=== PATIENT | male | born 1985 | race Caucasian/White ===

== ENCOUNTER → 2018-03-06 11:15 | Outpatient (CLI) | payer BC, SELFPAY ==
[2018-03-06 12:29] LABS: Anion Gap 7 (5-15); BUN 12 mg/dL (7-18); BUN/Creat Ratio 11.9 RATIO (10-20); Calcium,Total 8.9 mg/dL (8.5-10.1); Chloride 105 mmol/L (98-107); Creatinine, Serum 1.01 mg/dL (0.70-1.30); EST Glomerular Filtration Rate 91 mL/min (>60); Est Glom Filt Rate - Afr Amer 111 mL/min (>60); Glucose 84 mg/dL (74-106); Potassium 3.5 mmol/L (3.5-5.1); Sodium Level 142 mmol/L (136-145)
== END ==
PROVIDERS: Physician Assistant Medical; Family Provider Family Medicine; PCP Family Medicine; Visit Provider Internal Medicine Cardiovascular Disease
DX: I10 Essential (primary) hypertension (principal)
CPT/HCPCS: 36415; 80048

== ENCOUNTER → 2022-04-23 | Outpatient (CLI) | payer BC, SELFPAY ==
--- NOTE | 2022-04-23 10:11 | ECHOD_ITS ---
Reason For Study: HTN Procedure This was a 2D Doppler, Color Flow transthoracic echocardiogram. Exam performed in department. Left Ventricle Normal LV size. Left ventricular systolic function is normal. The estimated ejection fraction is 65 %. No regional wall motion abnormalities noted. Right Ventricle Normal RV size. Normal systolic function. Atria Normal left atrium. Normal right atrium. Mitral Valve Normal mitral valve. Tricuspid Valve Normal tricuspid valve. Aortic Valve Normal aortic valve. Pulmonic Valve Normal pulmonic valve. Great Vessels Normal aortic root. The pulmonary artery is normal size. Normal inferior vena cava. Pericardium/Pleural No pericardial effusion. MMode/2D Measurements & Calculations LVIDd: 5.1 cm IVSd: 1.1 cm Ao root diam: 2.7 cm LVIDs: 3.0 cm LVPWd: 0.84 cm RVDd: 3.8 cm FS: 42.2 % LAV(MOD-bp): 37.8 ml LVAd ap4: 29.2 cm2 SV(MOD-sp4): 58.2 ml LAV(MOD-bp) Indexed: 19.1 ml/m2 LVLd ap4: 8.1 cm LAV(MOD-sp2): 37.9 ml EDV(MOD-sp4): 87.3 ml LAV(MOD-sp4): 38.7 ml EDV(sp4-el): 89.3 ml LVAs ap4: 14.6 cm2 LVLs ap4: 6.6 cm ESV(MOD-sp4): 29.1 ml ESV(sp4-el): 27.6 ml EF(MOD-sp4): 66.6 % EF(sp4-el): 69.0 % SV(sp4-el): 61.6 ml LA A4 area: 14.2 cm2 LA dimension(2D): 4.0 cm RA A4 area: 8.9 cm2 Time Measurements MV dec time: 0.23 sec Doppler Measurements & Calculations MV E max humphrey: 102.6 cm/sec Lat Peak E' Humphrey: 15.5 cm/sec Med Peak E' Humphrey: 8.6 cm/sec MV A max humphrey: 64.4 cm/sec E/E' lat: 6.6 E/E' med: 11.9 MV E/A: 1.6 MV V2 max: 116.2 cm/sec Ao V2 max: 191.8 cm/sec MV max P.4 mmHg MV dec slope: 501.0 cm/sec2 Ao max P.7 mmHg MV V2 mean: 66.5 cm/sec Ao V2 mean: 126.9 cm/sec MV mean P.0 mmHg Ao mean P.5 mmHg MV V2 VTI: 36.0 cm Ao V2 VTI: 35.0 cm LV V1 max: 126.7 cm/sec PA V2 max: 135.6 cm/sec LV V1 max P.4 mmHg PA V2 mean: 94.0 cm/sec LV V1 mean P.4 mmHg LV V1 mean: 86.2 cm/sec LV V1 VTI: 23.9 cm ECHO/Echo Complete Interpretation Summary Normal LV size. Left ventricular systolic function is normal. The estimated ejection fraction is 65 %. Structurally normal valves. Ordering Physician: Tisha Cartagena Referring Physician: Manoj Mayo Performed By: Rolanda Barnes RCS
== END | disposition home or self-care (01) ==
LOC: CVS 10:07
PROVIDERS: PCP Family Medicine; Visit Provider Physician Assistant Medical
DX: I10 Essential (primary) hypertension (principal)
CPT/HCPCS: 93306; 93788

== ENCOUNTER → 2022-05-07 | Outpatient (CLI) | payer BC, SELFPAY | END | disposition home or self-care (01) | LOC: SL 20:01 | PROVIDERS: PCP Family Medicine; Visit Provider Physician Assistant Medical | DX: G47.33 Obstructive sleep apnea (adult) (pediatric) (principal); I10 Essential (primary) hypertension | CPT/HCPCS: 95810 ==

== ENCOUNTER 2022-10-04 16:22 | Emergency (ER) | payer BC, SELFPAY ==
[2022-10-04 16:23] VITALS: BP 126/100; PULSE 95; RESP 14; TEMP 36.6; O2SAT 100; BMI 32.1
--- NOTE | 2022-10-04 16:39 | EX.ED.DYSGE1 ---
HPI History of Present Illness Chief Complaint: Nausea/Vomiting/Diarrhea Detail of Chief Complaint: Vomiting and diarrhea Informant: patient Narrative Narrative: Patient presents to the emergency department with complaint of vomiting and diarrhea that started around 8:30 AM. Patient initially started with diarrhea. He had frequent watery stools without blood in them. Patient started vomiting approximately at noon today. He is now feeling lightheaded and generally feels weak. He denies fever. He denies sick contacts. He denies eating any unusual or undercooked foods. Patient denies urinary symptoms. [facility] Medical History (Updated 10/04/22 @ 17:[address] Zoraida Ruiz, DO) Essential (primary) hypertension Home Medications amlodipine 10 mg tablet 10 mg PO DAILY #90 tabs 02/17/22 [Rx Last Taken Unknown] losartan 100 mg tablet 100 mg PO DAILY #90 tabs 02/17/22 [Rx Last Taken Unknown] metoprolol succinate 50 mg tablet,extended release 24 hr (Toprol XL) 50 mg PO DAILY #90 tabs 04/28/22 [Rx Last Taken Unknown] hydrochlorothiazide 25 mg tablet 25 mg PO DAILY #90 tabs 08/06/22 [Rx Last Taken Unknown] ondansetron 4 mg disintegrating tablet 4 mg PO Q8H PRN PRN Nausea #10 tabs 10/04/22 [Rx Last Taken Unknown] Allergy/AdvReac Type Severity Reaction Status Date / Time No Known Allergies Allergy Verified 10/04/22 16:23 Family History Father Hypertension Mother Diabetes Hypertension Surgical History Hx of knee surgery Social History Smoking Status: Never smoker ROS ROS ED Review of Systems ROS Unobtainable: other Constitutional Constitutional ED: Reports lethargy; Denies chills, fever(s), sweats or weight loss Eyes Eyes: Denies blurry vision, change in vision or diplopia ENT ENT ED: Denies rhinorrhea or sore throat Cardiovascular Cardiovascular: Denies chest pain, orthopnea or racing heartbeat Respiratory/Chest Respiratory/Chest: Denies cough, dyspnea, dyspnea on exertion, orthopnea or sputum Gastrointestinal Gastrointestinal: Reports diarrhea, nausea and vomiting; Denies abdominal pain Genitourinary Genitourinary ED: Denies dysuria, hematuria or urinary frequency Musculoskeletal Musculoskeletal: Denies arthralgias, back pain, myalgias or neck pain Integumentary Denies abscess, Abrasions or rash Neurologic Neurologic: Denies headache(s) or weakness Psychiatric Psychiatric: Denies anxiety, depression or suicidal thoughts Endocrine Endocrinology: Denies polydipsia, polyphagia or polyuria Hematologic/Lymphatic Hematologic/Lymphatic: Denies easy bleeding, easy bruising or lymphadenopathy Allergic/Immunologic Allergic/Immunologic ED: Denies mouth swelling, tongue swelling or urticaria EXAM Physical Exam Const Vital Signs: 10/04/22 16:23 Temperature 98 F Temperature Source Temporal Pulse Rate 95 Respiratory Rate 14 Blood Pressure 126/100 H Blood Pressure Mean 108 Pulse Ox 100 Oxygen Delivery Method Room Air Positive well nourished and well developed General Appearance ED: well developed and NAD HEENT Reports TM's clear and dry mucous membranes normocephalic and atraumatic; Negative for trauma or tenderness Tympanic Membrane ED: Yes TM's clear Mouth ED: Yes dry mucous membranes Mouth: dry mucous membranes Eyes PERRL and EOMs intact bilaterally General Eye ED: Negative for pale conjunctiva or scleral icterus Neck no lymphadenopathy, supple and no JVD General: Negative for tenderness Chest Wall inspection of chest normal and palpation of chest normal Chest: Negative for tenderness Resp normal respiratory effort and clear to auscultation bilaterally Effort and Inspection: Negative for respiratory distress or pain with movement Auscultation: Negative for rhonchi, wheezes or diminished lung sounds Cardio regular rate, regular rhythm, S1 normal heart sound, S2 normal heart sound and no murmurs Peripheral Pulses: pulses 2+ throughout GI normal to inspection, nondistended, normoactive bowel sounds, soft to palpation, non-tender, non-distended and no masses Back/Spine no CVA tenderness and no thoracic nor lumbar tenderness Extremity normal to inspection General Extremety ED: Negative for edema General Extremity: Negative for edema Neuro oriented x3, CN's II-XII intact bilaterally, no sensory deficits noted and gait normal Sensorium / Orientation: awake, alert, oriented to person, oriented to place and oriented to time Motor Exam: strength 5/5 throughout and strength abnormal Psych mental status grossly normal Skin no rashes or lesions noted and no wounds MDM MDM MDM Narrative Medical decision making narrative: IV line established on arrival. Patient was given a liter and was a fluid bolus and Zofran 4 mg IV. Patient was also given Imodium. He had no further vomiting. Blood work showed a white count of 13.1 which is elevated but feel it is reactive from all the retching and vomiting. Patient also had chemistries that were unremarkable other than an elevated blood glucose of 355. Patient states there is a history of diabetes in the family but he himself has never been diagnosed with diabetes. He denies eating anything sugary prior to coming in. At this time patient is feeling improved I will discharge him to home with a prescription for Zofran and he is to take Imodium as needed for the diarrhea. Patient will follow-up with his primary care physician this week to have a repeat blood sugar and potentially formal testing for diabetes. Lab Data Attestation: I reviewed the patient's lab results. Labs: Laboratory Results - last 24 hr 10/04/22 10/04/22 16:57 16:57 WBC 13.1 H RBC 5.27 Hgb 15.5 Hct 46.0 MCV 87.3 MCH 29.4 MCHC 33.7 RDW Std Deviation 40.6 RDW Coeff of [place] 12.7 Plt Count 277 MPV 10.7 Immature Gran % (Auto) 0.300 Neut % (Auto) 90.1 H Lymph % (Auto) 5.7 L [place] % (Auto) 2.9 Eos % (Auto) 0.6 Baso % (Auto) 0.4 Absolute Neuts (auto) 11.8 H Absolute Lymphs (auto) 0.75 L Nucleated RBC % 0 Sodium 134 L Potassium 3.7 Chloride 100 Carbon Dioxide 24.0 Anion Gap 10 BUN 13 Creatinine 1.13 Estim Creat Clear Calc 78.61 Est GFR (MDRD) Af Amer 94 Est GFR (MDRD) Non-Af 78 BUN/Creatinine Ratio 11.5 Glucose 355 H Calcium 9.3 Discharge Plan Triage Chief Complaint: Nausea/Vomiting/Diarrhea ED Provider: Zoraida Ruiz Dx/Rx/DC Orders Clinical Impression: Viral gastroenteritis, Hyperglycemia, unspecified Instructions: ED Gastroenteritis, Viral (Adult), ED Hyperglycemia New Susp Diabetes Prescriptions: New ondansetron [ondansetron] 4 mg tablet,disintegrating 4 mg PO Q8H PRN PRN (Reason: Nausea) Qty: 10 0RF No Action losartan 100 mg tablet 100 mg PO DAILY Qty: 90 3RF amlodipine 10 mg tablet 10 mg PO DAILY Qty: 90 3RF metoprolol succinate [Toprol XL] 50 mg tablet extended release 24 hr 50 mg PO DAILY Qty: 90 3RF hydrochlorothiazide 25 mg tablet 25 mg PO DAILY Qty: 90 3RF Primary Care Provider: Manoj Mayo Referrals: Manoj Mayo MD [Primary Care Provider] - 3-5 Days Disposition Disposition: Home, Self Care
[2022-10-04] MEDS: Loperamide 2 MG Capsule 4 MG PO (16:52)
[2022-10-04] MEDS: 0.9% Normal Saline 1,000 ML 1000 ML IV (16:52)
[2022-10-04] MEDS: Ondansetron 4 MG/2 ML Vial IV (16:52)
[2022-10-04 17:07] LABS: Absolute Lymphocyte Count 0.75 X10^3/uL (0.83-4.51); Absolute Neutrophil Count 11.8 X10^3/uL (2.0-7.7); Basophil# 0.05 X10^3/uL; Basophil% 0.4 % (0-1); Eosinophil# 0.08 X10^3/uL; Eosinophils% 0.6 % (0-5); Hemoglobin 15.5 g/dL (13.0-16.5); Lymphocyte # 0.75 X10^3/ul (0.83-4.51); Lymphocyte % 5.7 % (19-41); Mean Corp Hgb Conc 33.7 g/dL (32-36); Mean Corpuscular Hgb 29.4 pg (27.0-32.0); Mean Corpuscular Volume 87.3 fL (80-94); Mean Platelet Vol. 10.7 fl (6.2-12.0); Monocyte# 0.38 X10^3/uL; Monocyte% 2.9 % (0-10); NRBC Flagged by Analyzer 0 % (0-5); Neutrophil # 11.77 X10^3/uL (2.7-7.7); Neutrophil % 90.1 % (47-70); Platelet Count 277 K/mm3 (150-450); RBC Distribution Width CV 12.7 % (11.6-14.6); RBC Distribution Width SD 40.6 fl (35.1-43.9); Red Blood Count 5.27 M/mm3 (4.6-6.2); White Blood Count 13.1 K/mm3 (4.4-11.0)
[2022-10-04 17:23] LABS: Anion Gap 10 (5-15); BUN 13 mg/dL (7-18); BUN/Creat Ratio 11.5 RATIO (10-20); Calcium,Total 9.3 mg/dL (8.5-10.1); Chloride 100 mmol/L (98-107); Creatinine, Serum 1.13 mg/dL (0.70-1.30); EST Glomerular Filtration Rate 78 mL/min (>60); Est Glom Filt Rate - Afr Amer 94 mL/min (>60); Estimated Creatinine Clearance 78.61 ml/min; Glucose 355 mg/dL (74-106); Potassium 3.7 mmol/L (3.5-5.1); Sodium Level 134 mmol/L (136-145)
== END 2022-10-04 18:02 | disposition home or self-care (01) ==
PROVIDERS: Emergency Provider Emergency Medicine; PCP Family Medicine; Visit Provider Emergency Medicine
DX: A08.4 Viral intestinal infection, unspecified (principal); R73.9 Hyperglycemia, unspecified; I10 Essential (primary) hypertension
CPT/HCPCS: 80048; 85025; 96361; 96374; 99282; J7030; J7050; A4216; J2405

== ENCOUNTER → 2022-12-20 | Outpatient (CLI) | payer BC, SELFPAY ==
[2022-12-20 15:41] LABS: Anion Gap 9 (5-15); BUN 12 mg/dL (7-18); BUN/Creat Ratio 12.8 RATIO (10-20); Calcium,Total 9.7 mg/dL (8.5-10.1); Chloride 102 mmol/L (98-107); Creatinine, Serum 0.94 mg/dL (0.70-1.30); EST Glomerular Filtration Rate 97 mL/min (>60); Est Glom Filt Rate - Afr Amer 117 mL/min (>60); Glucose 141 mg/dL (74-106); Sodium Level 138 mmol/L (136-145)
== END | disposition home or self-care (01) ==
LOC: BIMLAB 11:43
PROVIDERS: PCP Internal Medicine; Referring Provider Internal Medicine; Visit Provider Internal Medicine
DX: E11.9 Type 2 diabetes mellitus without complications (principal); I10 Essential (primary) hypertension
CPT/HCPCS: 36415; 80048; 83036

== ENCOUNTER → 2023-09-14 | Outpatient (CLI) | payer BC, SELFPAY ==
[2023-09-14 16:40] LABS: Absolute Neutrophil Count 3.8 X10^3/uL (2.0-7.7); Basophil# 0.07 X10^3/uL; Eosinophil# 0.16 X10^3/uL; Eosinophils% 2.3 % (0-5); Hematocrit 41.9 % (40-54); Hemoglobin 14.1 g/dL (13.0-16.5); Mean Corp Hgb Conc 33.7 g/dL (32-36); Mean Corpuscular Hgb 29.4 pg (27.0-32.0); Mean Corpuscular Volume 87.5 fL (80-94); Mean Platelet Vol. 10.1 fl (6.2-12.0); Monocyte# 0.67 X10^3/uL; Monocyte% 9.5 % (0-10); NRBC Flagged by Analyzer 0 % (0-5); Neutrophil # 3.75 X10^3/uL (2.7-7.7); Neutrophil % 53.1 % (47-70); Platelet Count 355 K/mm3 (150-450); RBC Distribution Width CV 12.8 % (11.6-14.6); RBC Distribution Width SD 40.8 fl (35.1-43.9); Red Blood Count 4.79 M/mm3 (4.6-6.2); White Blood Count 7.1 K/mm3 (4.4-11.0)
[2023-09-14 17:18] LABS: AST(SGOT) 54 U/L (15-37); Alanine Aminotransfer ALT/SGPT 116 U/L (16-61); Alkaline Phosphatase 96 U/L (45-117); Anion Gap 4 (5-15); BUN 16 mg/dL (7-18); BUN/Creat Ratio 15.4 RATIO (10-20); Calcium,Total 9.5 mg/dL (8.5-10.1); Chloride 100 mmol/L (98-107); Cholesterol 270 mg/dL (200); Creatinine, Serum 1.04 mg/dL (0.70-1.30); EST Glomerular Filtration Rate 85 mL/min (>60); Est Glom Filt Rate - Afr Amer 103 mL/min (>60); Globulin 4.2 g/dL (2.2-4.2); Glucose 226 mg/dL (74-106); High Density Lipoprotein 21 mg/dL; Potassium 3.2 mmol/L (3.5-5.1); Protein, Total 8.2 g/dL (6.4-8.2); Sodium Level 133 mmol/L (136-145); Triglycerides 1045 mg/dL
== END | disposition home or self-care (01) ==
LOC: BIMLAB 16:09
PROVIDERS: PCP Internal Medicine; Referring Provider Internal Medicine; Visit Provider Internal Medicine
DX: I10 Essential (primary) hypertension (principal); E11.9 Type 2 diabetes mellitus without complications
CPT/HCPCS: 36415; 80053; 80061; 85025

== ENCOUNTER → 2024-04-18 | Outpatient (CLI) | payer BC, SELFPAY ==
[2024-04-18 15:58] LABS: Anion Gap 9 (5-15); BUN 14 mg/dL (7-18); BUN/Creat Ratio 13.7 RATIO (10-20); Calcium,Total 10.3 mg/dL (8.5-10.1); Chloride 102 mmol/L (98-107); Creatinine, Serum 1.02 mg/dL (0.70-1.30); EST Glomerular Filtration Rate 87 mL/min (>60); Est Glom Filt Rate - Afr Amer 105 mL/min (>60); Glucose 109 mg/dL (74-106); Potassium 3.2 mmol/L (3.5-5.1); Sodium Level 137 mmol/L (136-145)
== END | disposition home or self-care (01) ==
LOC: BIMLAB 13:21
PROVIDERS: PCP Internal Medicine; Visit Provider Internal Medicine
DX: I10 Essential (primary) hypertension (principal)
CPT/HCPCS: 36415; 80048

== ENCOUNTER → 2024-10-23 | Outpatient (CLI) | payer BC, SELFPAY ==
[2024-10-23 15:59] LABS: Absolute Lymphocyte Count 3.12 X10^3/uL (0.83-4.51); Absolute Neutrophil Count 6.2 X10^3/uL (2.0-7.7); Basophil# 0.08 X10^3/uL; Basophil% 0.8 % (0-1); Eosinophil# 0.17 X10^3/uL; Eosinophils% 1.7 % (0-5); Hematocrit 42.4 % (40-54); Hemoglobin 14.3 g/dL (13.0-16.5); Lymphocyte # 3.12 X10^3/ul (0.83-4.51); Lymphocyte % 30.8 % (19-41); Mean Corp Hgb Conc 33.7 g/dL (32-36); Mean Corpuscular Volume 89.1 fL (80-94); Mean Platelet Vol. 10.3 fl (6.2-12.0); Monocyte# 0.59 X10^3/uL; Monocyte% 5.8 % (0-10); NRBC Flagged by Analyzer 0 % (0-5); Neutrophil # 6.15 X10^3/uL (2.7-7.7); Neutrophil % 60.7 % (47-70); Platelet Count 394 K/mm3 (150-450); RBC Distribution Width CV 12.8 % (11.6-14.6); RBC Distribution Width SD 41.8 fl (35.1-43.9); Red Blood Count 4.76 M/mm3 (4.6-6.2); White Blood Count 10.1 K/mm3 (4.4-11.0)
[2024-10-23 19:34] LABS: ALB/GLOB Ratio 1.4 RATIO (0.9-2.4); AST(SGOT) 48 U/L (<=37); Alanine Aminotransfer ALT/SGPT 88 U/L (<=46); Albumin, Serum 4.7 g/dL (3.5-5.0); Alkaline Phosphatase 69 U/L (40-129); Anion Gap 14 (5-15); BUN 14 mg/dL (4-19); BUN/Creat Ratio 14.7 RATIO (10-20); Calcium,Total 9.9 mg/dL (7.6-11.0); Carbon Dioxide 22.4 mmol/L (21.0-32.0); Chloride 101 mmol/L (98-108); Cholesterol 205 mg/dL (<=200); Creatinine, Serum 0.96 mg/dL (0.70-1.20); EST Glomerular Filtration Rate 104 (>60); Globulin 3.4 g/dL (2.2-4.2); Glucose 81 mg/dL (70-99); High Density Lipoprotein 29 mg/dL; Low Density Lipoprotein Calc. 106 mg/dL; Potassium 3.8 mmol/L (3.3-5.1); Protein, Total 8.1 g/dL (5.9-8.4); Sodium Level 137 mmol/L (133-145); Total Bilirubin 0.41 mg/dL (0.00-1.30); Triglycerides 350 mg/dL; Very Low Density Lipoprotein 70 mg/dL (5-40); cholesterol:hdl ratio screen 7.02
[2024-10-23 20:12] LABS: Microalbumin,Random Urine < 12.0 mg/L (NO RANGE EST.)
[2024-10-23 20:48] LABS: Hemoglobin A1c 5.9 % (<=5.6)
== END | disposition home or self-care (01) ==
LOC: BIMLAB 11:44
PROVIDERS: PCP Internal Medicine; Referring Provider Internal Medicine; Visit Provider Internal Medicine
DX: E11.69 Type 2 diabetes mellitus with other specified complication (principal); E78.5 Hyperlipidemia, unspecified
CPT/HCPCS: 36415; 80053; 80061; 82043; 82570; 83036; 85025

== ENCOUNTER 2025-03-08 06:58 | Emergency (ER) | payer BC, SELFPAY ==
[2025-03-08 06:59] VITALS: BP 152/103; PULSE 74; RESP 18; TEMP 36.7; O2SAT 98; BMI 33.0
--- NOTE | 2025-03-08 07:30 | EDS_ITS ---
HPI History of Present Illness Chief Complaint: Back Narrative Narrative: Patient is a 39-year-old male with past medical history of type 2 diabetes, hypertension, hyperlipidemia, hypokalemia who presented to the emergency department chief complaint of low back pain. Patient states that his pain started on Tuesday he does not remember any specific cause. He states that he has started working out recently and is unsure if he aggravated his back doing his workouts. Patient states that his been urinating normally for himself time normal bowel movements. Patient denies any history of IV drug use, denies smoking or alcohol use. Patient states that the pain was severe this morning took him a while to be able to get up out of bed therefore he came here for further evaluation management. [facility] Medical History Wart of hand Hyperlipidemia Hypokalemia Obesity (BMI 30-39.9) Type 2 diabetes mellitus Essential (primary) hypertension Home Medications ?Medication ?Instructions ?Recorded ?Last Taken ?Type blood-glucose meter (FreeStyle #1 ea 10/14/22 Unknown Rx Lite Meter kit) lancets 28 gauge (FreeStyle #200 ea 10/14/22 Unknown R x Lancets) blood sugar diagnostic (FreeStyle #100 ea 11/16/22 Unk nown Rx Lite Strips) metoprolol succinate 50 mg 50 mg PO DAILY #90 tabs Unknown Rx tablet,extended release 24 hr (Toprol XL) hydrochlorothiazide 25 mg tablet 25 mg PO DAILY #90 ta bs 07/19/24 Unknown Rx semaglutide 1 mg/dose (4 mg/3 mL) 1 mg (0.75 mL) subcu t QWEEK 3 07/19/24 Unknown Rx subcutaneous pen injector months #9.75 mL metformin 500 mg tablet,extended See Rx Instructions . Route 10/25/24 Unknown Rx release 24 hr .COMPLEX #180 tabs potassium chloride 20 mEq 20 meq PO BID #180 TABLETS 0 10/25/24 Unknown Rx tablet,extended release rosuvastatin 20 mg tablet 20 mg PO DAILY #90 tabs 10/13 11/06 Unknown Rx amlodipine 10 mg tablet 10 mg PO DAILY #90 tabs 12/14 03/08 Unknown Rx losartan 100 mg tablet 100 mg PO DAILY #90 tabs Unknown Rx cyclobenzaprine 10 mg tablet 10 mg PO TID PRN muscle s pasm #20 03/08/25 Unknown Rx tabs lidocaine 5 % topical patch 1 patch topical DAILY #15 ea 03/08/25 Unknown Rx Allergy/AdvReac Type Severity Reaction Status Date / Time No Known Allergies Allergy Verified 03/08/25 06:59 Family History Father Hypertension Diabetes Mother Diabetes Hypertension Grandfather Myocardial infarction Grandmother Myocardial infarction Other Arthritis Asthma Colon cancer Diverticulitis High cholesterol Surgical History Hx of knee surgery Social History Smoking Status: Never smoker alcohol intake: never substance use type: does not use what type of physical activity do you participate in: none ROS ROS ED ROS Narrative Constitutional: Denies fevers, chills, headaches Cardiovascular: Denies chest pain Respiratory: Denies shortness of breath Abdomen: Denies abdominal pain nausea vomit diarrhea : Denies any painful urination, hematuria Neurological: Denies any numbness, wheeze, tingling Musculoskeletal: Complains of low back pain states that it radiates across his lower back does not go down his legs Skin: Denies any rashes or lesions EXAM Physical Exam Narrative Exam Narrative: General: Patient is lying in bed rest comfortably do not appear to be acute distress Head: Atraumatic, normocephalic Eyes: PERRL bilaterally, EOMI bilateral, no conjunctival injection noted Neck: Soft, supple, trachea midline Cardiovascular: Regular rate and rhythm no murmurs gallops rubs noted Abdomen: Soft, nondistended, nontender to palpation Musculoskeletal: No tenderness palpation midline of the thoracolumbar spine no step-offs or deformities noted Extremities: +5/5 strength noted in the bilateral upper and lower extremities Neurological: Patient following commands knew that he was at [facility] the year is 2024. Sensation grossly intact no saddle anesthesia noted Skin: Warm, dry, intact no rashes or lesions noted Const Vital Signs: 03/08/25 06:59 Temperature 98.1 F Temperature Source Oral Pulse Rate 74 Respiratory Rate 18 Blood Pressure 152/103 H Blood Pressure Mean 119 Pulse Ox 98 Oxygen Delivery Method Room Air MDM MDM MDM Narrative Medical decision making narrative: Patient is a 39-year-old male who presented to the emergency department chief complaint of low back pain. On the differential diagnosis includes but not limited to UTI, pyelonephritis, urolithiasis, compression fracture, musculoskeletal strain, herniated disc. Once the workup is obtained reviewed he will be reevaluated. Patient did drive here therefore he will be given IM Toradol. Patient's urinalysis reviewed showed no evidence of blood no evidence infection. Patient's x-ray lumbar spine reviewed by myself and by radiology showed no acute fracture listhesis. Reevaluation patient he is feeling better he would like to go home at this point time. Patient was advised to rotate Tylenol ibuprofen [id number] for mild to moderate pain. He is encouraged to use the muscle relaxer as needed and to not operate anything under the influence of this medication. He will be given Lidoderm patches. He is advised to follow-up with his doctor in outpatient setting and return with worsening symptoms or any concerns. He is agreeable th is plan all question concerns answered he is discharged home in stable condition. Lab Data Labs: Laboratory Results - last 24 hr 03/08/25 07:55 Urine Color Yellow Urine Clarity Clear Urine pH 6.5 Ur Specific [place] 1.020 Urine Protein 30 H Urine Glucose (UA) Normal Urine Ketones Negative Urine Occult Blood Negative Urine Nitrite Negative Urine Bilirubin Negative Urine Urobilinogen Normal Ur Leukocyte Esterase Negative Urine RBC 0 SEEN Urine WBC 0 SEEN Ur Squamous Epith Cells 0 SEEN Urine Bacteria 0 SEEN Urine Mucus 0 SEEN Radiography Diagnostic Testing: Clinical Impression(s) from Imaging Studies Lumbar Spine X-Ray 03/08/25 07:45 IMPRESSION: No acute compression fracture or subluxations. No definite listhesis. Reading Location: [facility] Discharge Plan Triage Chief Complaint: Back ED Provider: Adis Ochoa Dx/Rx/DC Orders Clinical Impression: Back pain, Essential (primary) hypertension, Type 2 diabetes mellitus, Musculoskeletal strain Prescriptions: New lidocaine 5 % adhesive patch,medicated 1 patch topical DAILY Qty: 15 0RF Rx Instructions: leave on most painful area for up to 12 hrs cyclobenzaprine 10 mg tablet 10 mg PO TID PRN (Reason: muscle spasm) Qty: 20 0RF No Action (DME) lancets [FreeStyle Lancets] 28 gauge misc See Rx Instructions .MEDSUPPLY Qty: 200 3RF Rx Instructions: check blood glucose daily for type 2 DM (DME) blood-glucose meter [FreeStyle Lite Meter] Kit See Rx Instructions .MEDSUPPLY Qty: 1 0RF Rx Instructions: As directed, check blood glucose daily for type 2 DM rosuvastatin 20 mg tablet 20 mg PO DAILY Qty: 90 1RF potassium chloride 20 mEq tablet extended release 20 meq PO BID Qty: 180 1RF metformin 500 mg tablet extended release 24 hr See Rx Instructions .ROUTE .COMPLEX Qty: 180 1RF Dose Instruction: TAKE 2 TABLETS BY MOUTH TWICE DAILY Rx Instructions: TAKE 2 TABLETS BY MOUTH TWICE DAILY (DME) FreeStyle Lite Strips Strip See Rx Instructions .MEDSUPPLY Qty: 100 3RF Rx Instructions: check blood glucose 2-3 x daily for type 2 DM metoprolol succinate [Toprol XL] 50 mg tablet extended release 24 hr 50 mg PO DAILY Qty: 90 3RF hydrochlorothiazide 25 mg tablet 25 mg PO DAILY Qty: 90 3RF semaglutide 1 mg/dose (4 mg/3 mL) pen injector 1 mg subcut QWEEK 90 Days Qty: 9.75 1RF amlodipine 10 mg tablet 10 mg PO DAILY Qty: 90 3RF losartan 100 mg tablet 100 mg PO DAILY Qty: 90 3RF Primary Care Provider: Isabel Biggs Referrals: Isabel Biggs MD [Primary Care Provider] - Activity Restrictions/Additional Instructions: Rotate Tylenol and ibuprofen [id number] for mild to moderate pain when you do this you can take something every 3 hours max dose Tylenol in 24 hours 4000 mg max dose of ibuprofen in 24 hours 3200 mg. Use muscle laxer's as prescribed do not operate anything under the influence of this medication as it will make you sleepy and drowsy. Use the Lidoderm patches as prescribed. Your x-ray did not show any acute findings and your urinalysis was normal. Follow-up your doctor in the outpatient setting. Print Language: Lithuanian Disposition Disposition: Home, Self Care
[2025-03-08] MEDS: Ketorolac 30 MG/ML Syringe IM (07:43)
--- NOTE | 2025-03-08 07:45 | RAD_ITS ---
PROCEDURE: L/S SPINE MIN 4 VIEWS 03/08/2025 REASON FOR EXAM: LOW BACK PAIN TECHNIQUE: L/S SPINE MIN 4 VIEWS COMPARISON: None FINDINGS: No acute compression fracture or subluxations. No definite listhesis.. No significant degenerative changes. No acute soft tissue abnormalities. No radiographic foreign body. Vascular atherosclerosis. RAD/L/S Spine Min 4 Views IMPRESSION: No acute compression fracture or subluxations. No definite listhesis. Reading Location: [id number]
[2025-03-08 08:04] LABS: Mucous, Urine 0 SEEN /hpf (<or=2+); Red Blood Cells-Urine 0 SEEN /hpf (0-5); Squamous Epithelial Cells - UA 0 SEEN /hpf (0-5)
[2025-03-08 08:05] LABS: Color, Urine Yellow (Yellow); Glucose, Dipstick Normal (Normal); Ketone-Dipstick Negative (Negative); Leukocyte Esterase-Dipstick Negative /ul (Negative); Nitrite-Dipstick Negative (Negative); Occult Blood-Urine Negative /ul (Negative); Protein-Dipstick 30 mg/dl (Negative); Specific Gravity, Urine 1.020 (1.002-1.030); Urine Bilirubin Dipstick Negative (Negative)
[2025-03-08 08:59] VITALS: BP 122/86; PULSE 72; RESP 16; TEMP 36.7; O2SAT 98
== END 2025-03-08 09:01 | disposition home or self-care (01) ==
PROVIDERS: Emergency Provider Emergency Medicine; PCP Internal Medicine; Visit Provider Emergency Medicine
DX: S39.012A Strain of muscle, fascia and tendon of lower back, initial encounter (principal); E11.9 Type 2 diabetes mellitus without complications; I10 Essential (primary) hypertension; E78.5 Hyperlipidemia, unspecified; Z83.3 Family history of diabetes mellitus; X58.XXXA Exposure to other specified factors, initial encounter; Y93.B9 Activity, other involving muscle strengthening exercises
CPT/HCPCS: 72110; 81001; 99282